=== PATIENT | female | born 1975 | race Two or more races ===

== ENCOUNTER 2019-02-04 09:18 | Outpatient (CLI) | payer OTHER | END 2019-02-04 09:27 | disposition home or self-care (01) | LOC: LAB 09:18 | DX: D25.9 Leiomyoma of uterus, unspecified (principal) ==

== ENCOUNTER 2019-02-04 10:45 | Outpatient (CLI) | payer OTHER | END 2019-02-04 14:23 | disposition home or self-care (01) | LOC: MRI 10:45 | DX: D25.9 Leiomyoma of uterus, unspecified (principal) | CPT/HCPCS: 72196 ==

== ENCOUNTER 2019-02-28 08:34 | Outpatient (CLI) | payer OTHER | END 2019-02-28 08:45 | disposition home or self-care (01) | LOC: RAD 08:34 | DX: Z01.818 Encounter for other preprocedural examination (principal); D25.9 Leiomyoma of uterus, unspecified; N92.0 Excessive and frequent menstruation with regular cycle; N39.0 Urinary tract infection, site not specified; D64.89 Other specified anemias ==

== ENCOUNTER 2023-02-01 09:21 | Outpatient (CLI) | payer OTHER | END 2023-02-01 09:32 | disposition home or self-care (01) | LOC: RAD 09:21 | PROVIDERS: ATTEND General Practice | DX: M79.642 Pain in left hand (principal); M25.562 Pain in left knee ==

== ENCOUNTER 2023-02-27 14:46 | Outpatient (CLI) | payer OTHER | END 2023-02-27 15:10 | disposition home or self-care (01) | LOC: MAMO-SONO 14:46 | DX: Z12.31 Encounter for screening mammogram for malignant neoplasm of breast (principal); N64.4 Mastodynia ==